=== PATIENT | female | born 1955 | race Caucasian/White ===

== ENCOUNTER 2021-03-27 08:50 | Day surgery (SDC) | payer MEDICARE, OTHER ==
[2021-03-27] MEDS ORDERED: Lidocaine 1% MPF 2 ML VIAL ONE (10:38)
[2021-03-27] MEDS ORDERED: Fentanyl 100 MCG/2 ML VIAL ONE (11:07)
[2021-03-27] MEDS ORDERED: PROPOFOL 20 ML ONE (11:07)
[2021-03-27] MEDS ORDERED: Midazolam HCl 2 mg/2 ml Vial ONE (11:08)
[2021-03-27] MEDS ORDERED: Lidocaine 1% PF 5 ML VIAL ONE (11:08)
[2021-03-27] MEDS ORDERED: Ondansetron PF 4 MG/2 ML Vial ONE (11:08)
[2021-03-27] MEDS ORDERED: Dexamethasone 20 MG/5 ML VIAL ONE (11:08)
[2021-03-27] MEDS ORDERED: Lidocaine 1% (PF) 30 ML VIAL ONE ×2 (11:16→11:19)
[2021-03-27] MEDS ORDERED: Neomycin-Polymyxin 1 ML AMP ONE (11:17)
[2021-03-27] MEDS ORDERED: CEFAZOLIN 1 GM VIAL ONE (11:33)
[2021-03-27] MEDS ORDERED: ePHEDrine 50 MG/ML VIAL ONE (11:54)
[2021-03-27] MEDS ORDERED: Ketorolac Tromethamine 15 MG/ML VIAL ONE (12:08)
== END 2021-03-27 15:00 | disposition home or self-care (01) ==
LOC: CSHSDC 08:50
PROVIDERS: ATTEND Podiatrist Foot & Ankle Surgery
PROC: 0QSP04Z Reposition Left Metatarsal with Internal Fixation Device, Open Approach (ICD-10-PCS; principal; 2021-03-27)
DX: T84.84XA Pain due to internal orthopedic prosthetic devices, implants and grafts, initial encounter (principal); T84.293D Other mechanical complication of internal fixation device of bones of foot and toes, subsequent encounter; M20.5X2 Other deformities of toe(s) (acquired), left foot; M20.12 Hallux valgus (acquired), left foot; M25.375 Other instability, left foot; M79.672 Pain in left foot
CPT/HCPCS: J0690; J1100; J1885; J2001; J2250; J2405; J2704; J3010; J3490

== ENCOUNTER 2021-12-31 13:40 | Outpatient (CLI) | payer MEDICARE, OTHER | END 2021-12-31 13:41 | disposition home or self-care (01) | LOC: CSHMAMMO 13:40 | PROVIDERS: ATTEND Physician Assistant | DX: Z12.31 Encounter for screening mammogram for malignant neoplasm of breast (principal); Z80.3 Family history of malignant neoplasm of breast | CPT/HCPCS: 77063; 77067 ==

== ENCOUNTER 2023-01-20 14:06 | Outpatient (CLI) | payer MEDICARE, OTHER | END 2023-01-20 14:07 | disposition home or self-care (01) | LOC: CSHMAMMO 14:06 | PROVIDERS: ATTEND Physician Assistant | DX: Z12.31 Encounter for screening mammogram for malignant neoplasm of breast (principal); Z80.3 Family history of malignant neoplasm of breast | CPT/HCPCS: 77063; 77067 ==

== ENCOUNTER 2023-01-30 10:11 | Outpatient (CLI) | payer MEDICARE, OTHER | END 2023-01-30 10:12 | disposition home or self-care (01) | LOC: CSHMAMMO 10:11 | PROVIDERS: ATTEND Physician Assistant | DX: Z13.820 Encounter for screening for osteoporosis (principal); M81.0 Age-related osteoporosis without current pathological fracture; Z78.0 Asymptomatic menopausal state | CPT/HCPCS: 77080 ==

== ENCOUNTER 2024-02-09 | Outpatient (CLI) | payer MEDICARE | END 2024-02-09 09:43 | disposition home or self-care (01) | DX: Z12.31 Encounter for screening mammogram for malignant neoplasm of breast (principal); Z80.3 Family history of malignant neoplasm of breast ==

== ENCOUNTER 2025-11-11 08:43 | Outpatient (CLI) | payer MEDICARE | END 2025-11-11 08:44 | disposition home or self-care (01) | LOC: CSHMAMMO 08:43 | PROVIDERS: ATTEND Physician Assistant | DX: Z53.9 Procedure and treatment not carried out, unspecified reason (principal) | CPT/HCPCS: 77066; G0279 ==